=== PATIENT | female | born 1950 ===

== ENCOUNTER → 2016-05-18 | Outpatient (CLI) | payer OTHER ==
[~2016-05-18] VITALS: Ht 157.5 cm; Wt 48.0 kg
[~2016-05-18] MED LIST: CHLO4TAB96 PO; DIPH25 PO; FLUT1AER PO; IPRA3AMP4 IH; MONT10TA21 PO; OLAN10TA3 PO; TIOT185 IH
[2016-05-18 11:03] VITALS: BP 134/92
== END | disposition home or self-care (01) ==
LOC: SRCNTR 10:53
PROVIDERS: ATTEND Internal Medicine Critical Care Medicine
DX: J96.10 Chronic respiratory failure, unspecified whether with hypoxia or hypercapnia (principal); J44.1 Chronic obstructive pulmonary disease with (acute) exacerbation; J30.9 Allergic rhinitis, unspecified
CPT/HCPCS: G0463

== ENCOUNTER → 2017-08-16 | Outpatient (CLI) | payer OTHER ==
[~2017-08-16] VITALS: Ht 157.5 cm; Wt 43.5 kg
[~2017-08-16] MED LIST changes: +ACET104 NEB; +CETI-290 PO
[2017-08-16 13:57] VITALS: BP 107/69
== END | disposition home or self-care (01) ==
LOC: SRCNTR 13:51
PROVIDERS: ATTEND Internal Medicine Critical Care Medicine
DX: J44.1 Chronic obstructive pulmonary disease with (acute) exacerbation (principal); J96.10 Chronic respiratory failure, unspecified whether with hypoxia or hypercapnia; J30.9 Allergic rhinitis, unspecified
CPT/HCPCS: G0463